=== PATIENT | female | born 1985 | race Two or more races ===

== ENCOUNTER 2025-05-25 15:53 | Outpatient (AMB) | payer BC, SELFPAY ==
--- NOTE | 2025-05-25 15:54 | MHC.PC.OV ---
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 Also wants to discuss weight loss injection Accompanied by: Self / Same As Patient Allergies No Known Allergies Allergy (Verified 05/25/25 15:54) Tobacco use date assessed: 05/25/25 Dental Screening Dental Screen Date: 05/25/25 Did you have a dental visit in the last 12 months?: Yes Was dental information given to patient?: Patient has dentist HPI HPI Comments History of Present Illness Details History of Present Illness The patient is a 39-year-old female presenting for a new patient visit and evaluation of skin tags. Skin tags: - The patient reports the presence of skin tags and expresses a desire for their removal. Overweight: - The patient has a BMI of 29.1, categorizing her as overweight. - She has not seen a dental lab technician and has started going to the gym but finds it challenging to maintain regular exercise. Review of Systems - General: Denies fatigue or malaise - Dermatological: Reports presence of skin tags - Gastrointestinal: Denies changes in bowel habits - Genitourinary: Reports regular menstrual cycles 10-point ROS reviewed and negative except as noted in HPI Past Medical History - No significant past medical history reported Health Maintenance - Cervical cancer screening referral to [facility] - Blood work ordered as part of routine health maintenance - Referral to a dental lab technician for weight management Physical Exam General: Well-appearing, in no acute distress. Vital signs: Within normal limits. HEENT: Normocephalic, atraumatic. PERRLA, EOMI. Conjunctiva clear, sclera anicteric. Oropharynx clear, mucous membranes moist. TMs intact bilaterally. Neck: Supple, no lymphadenopathy, no thyromegaly, no JVD or carotid bruits. Cardiovascular: RRR, normal S1/S2, no murmurs, rubs, or gallops. Peripheral pulses 2+ and symmetric. No edema. Respiratory: Lungs clear to auscultation bilaterally, no wheezes, rales, or rhonchi. Normal effort. Abdomen: Soft, non-tender, non-distended. Normoactive bowel sounds. No hepatosplenomegaly, no masses. MSK: Full range of motion, no joint swelling or deformity. Normal gait. Skin: Warm, dry, intact. No rashes, lesions, or pallor. Presence of skin tags noted. Neuro: Alert and oriented x3. Cranial nerves II-XII intact. Strength 5/5 throughout. Sensation intact. Reflexes 2+ symmetric. Normal coordination and gait. Psych: Appropriate mood and affect. Normal judgment and insight. Plan 1. Skin Tags - Plan to schedule an appointment for removal of skin tags. 2. Overweight - Discussed referral to a dental lab technician and the importance of lifestyle modifications including diet and exercise. - Consideration of medical weight loss options with a focus on sustainable lifestyle changes. Discussion Notes During the visit, we discussed the removal of skin tags and the referral to an [employer] [facility] for cervical cancer screening. We also talked about weight management strategies, including the potential use of medication and the importance of lifestyle changes. I emphasized the need for a dental lab technician referral to support sustainable weight loss. We reviewed the costs and considerations of weight loss medications and the importance of maintaining healthy habits. Patient was informed and verbally consented to the use of an ambient scribe for clinic note documentation during this visit. Patient Instructions - Schedule an appointment for skin tag removal. - Follow up with [facility] for cervical cancer screening. - Consult with a dental lab technician for weight management. - Maintain a balanced diet and regular exercise routine. [facility] Medical History (Updated 05/25/25 @ 16:14 by Maurice Bonilla MD) Cervical cancer screening Family History (Updated 05/25/25 @ 16:01 by Michela Taylor CMA) Mother Diabetes Father HTN (hypertension) Social History Housing: Apartment Patient Tobacco Use Status: Current everyday Tobacco user Tobacco use type: Cigarette service: No Current occupational status: employed Cognitive needs: No Hearing needs: No Vision needs: Yes (rx glasses) Questionnaire PHQ-9 Over the last 2 weeks, how often have you been bothered by any of the following problems? 1. Little interest or pleasure in doing things: not at all 2. Feeling down, depressed, or hopeless: not at all 3. Trouble falling or staying asleep, or sleeping too much: not at all 4. Feeling tired or having little energy: not at all 5. Poor appetite or overeating: not at all 6. Feeling bad about yourself - or that you are a failure or have let yourself or your family down: not at all 7. Trouble concentrating on things, such as reading the newspaper or watching television: not at all 8. Moving or speaking so slowly that other people could have noticed. Or the opposite - being so fidgety or restless that you have been moving around a lot more than usual: not at all 9. Thoughts that you would be better off or of hurting yourself in some way: not at all Total score: 0 Source: Developed by Drs. Chandrakant Randall, Sammi Dee, Fabricio Ireland and colleagues, with an educational nayana from [employer]. Thrive Questionnaire Date Thrive assessed: 05/25/25 I am a: Patient What is your living situation today?: I have a steady place to live Within the past 12 months, did the food you bought not last and you didn't have the money to get more?: Never true Within the past 12 months, did you worry whether your food would run out before you got money to buy more?: Never true Do you have trouble paying for medicines?: No Do you have trouble getting transportation to medical appointments?: No Do you have trouble paying your heating and electricity bill?: No Do you have trouble taking care of your child, family member or friend?: No Do you have trouble with day-to-day activities such as bathing, preparing meals, shopping, managing finances, etc.?: No Are you currently unemployed and looking for a job?: No Are you interested in more education?: No Please select the resources that you would like help with: None Currently or been in a relationship where the following occur: No concerns reported THRIVE Score: 0 AUDIT C Alcohol Use Questionnaire (AUDIT-C) 1. How often do you have a drink containing alcohol?: Monthly or less 2. How many drinks containing alcohol do you have on a typical day when you are drinking?: 3 or 4 3. How often do you have six or more drinks on one occasion?: Less than monthly Total Score: 3 MARCO-7 AMB Questionnaire MARCO-7 Date MARCO - 7 assessed: 05/25/25 Feeling nervous, anxious, or on edge: 0 = Not at all Not being able to stop or control worryin = Not at all Worrying too much about different things: 0 = Not at all Trouble relaxin = Not at all Being so restless that it is hard to sit still: 0 = Not at all Becoming easily annoyed or irritable: 0 = Not at all Feeling afraid as if something awful might happen: 0 = Not at all Total MARCO-7 score (0-4 normal; 5-9 mild; 10-14 moderate; 15-21 severe): 0 Source: Developed by Drs. Chandrakant Randall, Sammi Dee, Fabricio Ireland and colleagues, with an educational nayana from [employer]. Physical exam (Primary Care) Vital Signs: Last Vital Signs Temp 98.2 F 05/25/25 15:57 Pulse 92 05/25/25 15:57 BP 132/82 05/25/25 15:57 Pulse Ox 96 05/25/25 15:57 Oxygen Delivery Method Room Air 05/25/25 15:57 BMI result Body Mass Index 29.1 Tobacco/Smoking Status: Tobacco use Status Tobacco use date assessed 05/25/25 05/25/25 16:05 Patient Tobacco Use Status Current everyday Tobacco 05/25/25 16:05 Tobacco use type Cigarette 05/25/25 16:05 PHQ-9: PHQ-9 Score PHQ-9: Total score 0 05/25/25 16:06 Thrive Assessment: Date of Thrive Assessment Date Thrive assessed 05/25/25 05/25/25 16:05 Currently or been in a relationship where the following occur: No concerns reported Coding Level of Care Code New Pt Level 3 (11934) Diagnoses Nicotine use Z72.0 Overweight (BMI 25.0-29.9) E66.3 Establishing care with new doctor, encounter for Z76.89 Encounter for screening, unspecified Z13.9 Cervical cancer screening Z12.4 Screening for diabetes mellitus Z13.1 Screening for hypertension Z13.6 Screening for depression Z13.31 Screening for lipoid disorders Z13.220 Skin tag L91.8 Excessive ear wax H61.20 Assessment & Plan Assessment & Plan (1) Nicotine use: Code(s): Z72.0 - Tobacco use (2) Overweight (BMI 25.0-29.9): Code(s): E66.3 - Overweight (3) Establishing care with new doctor, encounter for: Code(s): Z76.89 - Persons encountering health services in other specified circumstances (4) Encounter for screening, unspecified: Code(s): Z13.9 - Encounter for screening, unspecified (5) Cervical cancer screening: Code(s): Z12.4 - Encounter for screening for malignant neoplasm of cervix Category: Medical (6) Screening for diabetes mellitus: Code(s): Z13.1 - Encounter for screening for diabetes mellitus (7) Screening for hypertension: Code(s): Z13.6 - Encounter for screening for cardiovascular disorders (8) Screening for depression: Code(s): Z13.31 - Encounter for screening for depression (9) Screening for lipoid disorders: Code(s): Z13.220 - Encounter for screening for lipoid disorders (10) Skin tag: Code(s): L91.8 - Other hypertrophic disorders of the skin (11) Excessive ear wax: Code(s): H61.20 - Impacted cerumen, unspecified ear Plan Orders: Orders Complete Blood Count Auto Diff Today Z13.9 - Encounter for screening, unspecified, Z76.89 - Persons encountering health services in other specified circumstances Comprehensive Met. Panel Today Z13.9 - Encounter for screening, unspecified, Z76.89 - Persons encountering health services in other specified circumstances Hepatitis B Surface Antigen Today Z13.9 - Encounter for screening, unspecified, Z76.89 - Persons encountering health services in other specified circumstances TSH reflex Free T4 Today Z13.9 - Encounter for screening, unspecified, Z76.89 - Persons encountering health services in other specified circumstances Vitamin D 1,25 dihydroxy Today Z13.9 - Encounter for screening, unspecified, Z76.89 - Persons encountering health services in other specified circumstances Hemoglobin A1c Today Z13.9 - Encounter for screening, unspecified, Z76.89 - Persons encountering health services in other specified circumstances Hepatitis B Surface Antibody Today Z13.9 - Encounter for screening, unspecified, Z76.89 - Persons encountering health services in other specified circumstances Hepatitis C Antibody Today Z13.9 - Encounter for screening, unspecified, Z76.89 - Persons encountering health services in other specified circumstances HIV Ab/Ag Today Z13.9 - Encounter for screening, unspecified, Z76.89 - Persons encountering health services in other specified circumstances Lipid Panel Today Z13.9 - Encounter for screening, unspecified, Z76.89 - Persons encountering health services in other specified circumstances Magnesium Today Z13.9 - Encounter for screening, unspecified, Z76.89 - Persons encountering health services in other specified circumstances UA CC w/rflx Micro + Cult Today Z13.9 - Encounter for screening, unspecified, Z76.89 - Persons encountering health services in other specified circumstances Vitamin B12 and Folate Today Z13.9 - Encounter for screening, unspecified, Z76.89 - Persons encountering health services in other specified circumstances Referrals [facility] [facility] [facility] Referral Z12.4 - Encounter for screening for malignant neoplasm of cervix Nurse Navigator Referral E66.3 - Overweight, Z72.0 - Tobacco use
[2025-05-25 15:57] VITALS: BP 132/82; PULSE 92; TEMP 36.8; O2SAT 96; BMI 29.1
--- OUTSIDE RECORDS SUMMARY | 2025-05-25 17:01 | XMS_ITS | Clinical Summary ---
Author Organization [facility] Address [address] [place] [address] Care Team Providers Care Senior Professional Services Consultant Name Role Phone Hannah Loomis PA-C Primary Care Provider Source Comments PLEASE NOTE, if this patient is a minor, it may be UNLAWFUL to discuss sensitive information that is contained in these records (such as FAMILY PLANNING, MENTAL HEALTH or SUBSTANCE ABUSE) with the minor patient's parent or other person without the patient's specific authorization.[facility] Allergies No known active allergies Medications No known medications Active Problems Problem Noted Date Diagnosed Date Rectal bleeding Overview (06/30/2013): Has GI appt 09/2010 Immunizations Immunization Administration Dates Next Due TDAP 02/13/2023 Family History Medical History Relation Name Comments Diabetes Mother Relation Name Status Comments Father Alive Mother Alive Social History Tobacco Use Types Packs/Day Years Used Date Smoking Tobacco: Some Days Smokeless Tobacco: Never Tobacco Cessation:Ready to Q uit: No; Counseling Given: Yes Alcohol Use Standard Drinks/Week Comments Yes 0 (1 standard drink = 0.6 oz pur e alcohol) Social Connections Answer Date Recorded Connectedness 0 05/01/2024 Financial Resource Strain Answer Date R ecorded Financial Resource Strain 0 2020 Stress Answer Date Recorded Stress 0 03/27/2021 Physical Activity Answer Date Recorded Physical Activity 0 03/27/2021 Food Insecurity Answer Date Recorded Food 0 05/21/2024 Transportation Needs Answer Date Record ed Transportation 0 03/27/2021 Housing Stability Answer Date Recorded Housing 0 03/27/2021 Safety and Environment Answer Date Sanjeev rded Safety 0 02/13/2023 Utilities Answer Date Recorded Utilities 0 03/27/2021 Employment Answer Date Recorded Stress 0 11/13/2021 Comments No Sex and Gender Information Value Date Recorded Sex Assigned at Female 11/08/2021 6:46 AM PDT Legal Sex Female 11:36 AM PDT Gender Identity Female 11/08/2021 6:46 AM PDT Sexual Orientation Straight 11/08/2021 6: 46 AM PDT Last Filed Vital Signs Vital Sign Reading Time Taken Comments Blood Pressure 113/78 02/13/2023 4:42 PM EDT Pulse 94 02/13/2023 4:42 PM EDT Temperature 37.1 C (98.7 F) 02/13/2023 4:42 PM EDT Respiratory Rate 16 02/13/2023 4:42 PM EDT Oxygen Saturation 99% 11/08/2021 9:46 AM EDT Inhaled Oxygen Concentration - - Weight 71.7 kg (158 lb) 02/13/2023 4:42 PM EDT Height 154.9 cm (5' 1 ) 02/13/2023 4:42 PM EDT Body Mass Index 29.85 02/13/2023 4:42 PM EDT Plan of Treatment Health Maintenance Due Date Last Done Comments Anxiety Screening 1986 HPV Screening 1986 Tobacco Screening 1986 Imm-Hepatitis B (1 of 3 - 19 + 3-dose series) 2005 Imm-Pneumococcal (1 of 2 - PCV) 2005 Imm-HPV (1 - 3-dose SCDM series) 2013 Tobacco Cessation Counseling (#1) 02/13/2024 Annual Wellness (Adult): Ind icated (All Coverage) 02/14/2024 02/13/2023 Relationship Safety Screening/Counseling 02/14/2024 02/13/2023, 11/08/2021 Pap Smear 05/05/2024 05/05/2021, 04/26 (Managed by Outside Provider) Alcohol and Drug Screen 08/26/2024 02/13/2023, 11/08 Depression Annual Screen 08/26/2024 02/13/2023 [id number] ( season) 2025 022, 03/20/2021 Imm-Influenza (#1) 2025 Hypertension Screening (#1) 02/12/2026 Diabetes Screening 02/14/2026 02/14/2023, 11/08/2021 Cervical Cancer Screening 05/05/2026 Pap + HPV 05/05/2026 05/05/2021 Imm-DTaP/Tdap/Td (3 - Td or Tdap) 02/13/2033 023, 06/16/2012 HIV Screening Completed 11/08/2021 Hepatitis C Screening Completed 11/08/2021 Cervical Ablation/Cold-Knife Conization Discontinued Cervical Cryotherapy Discontinued Colposcopy Discontinued Endometrial Biopsy Discontinued Excision/Leep Discontinued HPV Genotyping Discontinued Vaginal Pap Discontinued Vulvoscopy Discontinued Procedures Procedure Name Priority Date/Time Associated Diagnosis Comments COMPREHENSIVE METABOLIC PANEL Routine 02/14/2023 8:46 AM EDT Routine general medical examination at a health care facility HIV 1/2 AG & AB W/RFLX (4TH GEN) Routine 11/08/2021 10:01 AM EDT Encounter to establish care HEPATITIS C AB W/RFLX HCV RNA, QT, RT PCR Routine 11/08/2021 10:01 AM EDT Encounter to establish care PAP W/ HPV 05/05/2021 3:00 AM EDT from Last 3 Months or Most Recently Relevant to Health Maintenance Results * (ABNORMAL) CMP (02/14/2023 8:46 AM EDT) GLUCOSE 93 65 - 99 mg/dL [facility] Comment: Fasting reference interval UREA NITROGEN (BUN) 14 7 - 25 mg/dL [facility] CREATININE (blood) 0.64 0.50 - 0.97 mg/dL [facility] EGFR 117 > OR = 60 mL/min/1 .73m2 [facility] Comment: The eGFR is based on the CKD-EPI 2020 equation. To calculate the new eGFR from a previous Creatinine or Cystatin C result, go to https://www.kidney.org/professionals/ kdoqi/gfr%5Fcalculator BUN/CREATININE RATIO NOT APPLICABLE [facility] SODIUM 137 135 - 146 mmol/L [facility] POTASSIUM 4.2 3.5 - 5.3 mmol/L [facility] CHLORIDE 104 98 - 110 mmol/L [facility] CARBON DIOXIDE 25 20 - 32 mmol/L [facility] CALCIUM 9.8 8.6 - 10.2 mg/dL [facility] PROTEIN, TOTAL 7.9 6.1 - 8.1 g/dL [facility] ALBUMIN 4.5 3.6 - 5.1 g/dL [facility] GLOBULIN 3.4 1.9 - 3.7 g/dL (calc) [facility] ALBUMIN/GLOBUL IN RATIO 1.3 1.0 - 2.5 (calc) [facility] BILIRUBIN, TOTAL 0.5 0.2 - 1.2 mg/dL [facility] ALKALINE PHOSPHATASE 66 31 - 125 U/L [facility] AST 21 10 - 30 U/L [facility] ALT 33(H) 6 - 29 U/L [facility] Blood Blood / Unknown 02/14/2023 8 :46 AM EDT 02/14/2023 8:47 AM EDT Narrative [facility] - 02/15/2023 6:32 AM EDT FASTING:YES Magy Smith NP LAB - BLOOD DRAW Final Result [facility] [address] [place] [id number], [facility] [address] [place] [id number] * Hep C Antibody with Reflex HCV RNA (11/08/2021 10:01 AM EDT) HEPATITIS C ANTIBODY NON-REACT ANU NON-REACT ANU NAME'S [facility] SIGNAL TO CUT-OFF 0.01 <1.00 [facility] Comment: HCV antibody was non-reactive. There is no laboratory evidence of HCV infection. In most cases, no further action is required. However, if recent HCV exposure is suspected, a test for HCV RNA (test code 90284) is suggested. For additional information please refer to http://education.[employer]Net/faq/ADJ12j0 (This link is being provided for informational/ educational purposes only.) Blood Blood / Unknown 11/08/2021 1 0:01 AM EDT 11/08/2021 10:01 AM EDT Narrative [facility] - 2021 4:26 AM EDT FASTING:YES Hannah Loomis PA-C LAB - BLOOD DRAW Edited Resu lt - Final Performing Organization Address [facility] Co de Phone Number [facility] [address] [address], [facility] [address],[place] [address] * HIV Ag & Ab with Reflex Western Blot (11/08/2021 10:01 AM EDT) HIV AG/AB, 4TH GEN NON-REAC TIVE NON-REAC TIVE NAME'S [facility] Comment: HIV-1 antigen and HIV-1/HIV-2 antibodies were not detected. There is no laboratory evidence of HIV infection. PLEASE NOTE: This information has been disclosed to you from records whose confidentiality may be protected by state law. If your state requires such protection, then the state law prohibits you from making any further disclosure of the information without the specific written consent of the person to whom it pertains, or as otherwise permitted by law. A general authorization for the release of medical or other information is NOT sufficient for this purpose. For additional information please refer to http://education.CosNet/faq/UQG809 (This link is being provided for informational/ educational purposes only.) The performance of this assay has not been clinically validated in patients less than 2 years old. Blood Blood / Unknown 11/08/2021 1 0:01 AM EDT 11/08/2021 10:01 AM EDT Narrative [facility] - 2021 4:26 AM EDT FASTING:YES us Hannah Loomis PA-C LAB - BLOOD DRAW Final Resul t [facility] [address] [address], [facility] [address],[place] [address] * PAP W/ HPV (05/05/2021 3:00 AM EDT) 05/05/2021 3:00 AM EDT Hannah Loomis PA-C LAB - PATHOLOGY AND CYTOLOGY AMBULATORY Final Result from Last 3 Months or Most Recently Relevant to Health Maintenance Insurance [facility] Care Teams Senior Professional Services Consultant Relationship Specialty Start Date End Date Hannah Loomis PA-C [address] [place] [address] PCP - General Internal Medicine 04/17/21
== END 2025-05-25 16:30 | disposition home or self-care (01) ==
LOC: HO.HMCFMS 15:54
PROVIDERS: PCP Student in an Organized Health Care Education/Training Program; Visit Provider Student in an Organized Health Care Education/Training Program
DX: L91.8 Other hypertrophic disorders of the skin (principal); Z68.29 Body mass index [BMI] 29.0-29.9, adult; E66.3 Overweight; Z72.0 Tobacco use